=== PATIENT | male | born 1990 | race Asian ===

== ENCOUNTER 2018-10-04 22:50 | Emergency (ER) | payer BC ==
[~2018-10-04] VITALS: Ht 165.1 cm; Wt 83.5 kg
[2018-10-04 23:05] VITALS: BP 127/76
[2018-10-04] MEDS ORDERED: IBUPROFEN 600 MG TAB PO ONE (23:10)
--- NOTE | 2018-10-04 23:11 | NUR ---
PT AMBULATED TO BED #12
[2018-10-04] MEDS ORDERED: KETOROLAC 60 MG/2 ML VIAL IM ONE (23:20)
--- NOTE | 2018-10-04 23:21 | NUR ---
PT TO ED WITH C/O HEADACHE, FEVER, AND SORE THROAT X 1 DAY. PT REPORTS TAKING TYLENOL THIS AM WITHOUT RELIEF. NO DISTRESS NOTED. PT PLACED INTO BED, PENDING MD [place].
[2018-10-04 23:35] VITALS: BP 127/76
== END 2018-10-04 23:35 | disposition home or self-care (01) ==
LOC: MED 22:50
DX: B34.9 Viral infection, unspecified (principal)
CPT/HCPCS: 96372; 99283; J1885